=== PATIENT | male | born 1980 | race Caucasian/White ===

== ENCOUNTER 2019-04-18 07:09 | Emergency (ER) | payer OTHER ==
[~2019-04-18] VITALS: Ht 182.9 cm; Wt 111.1 kg
[2019-04-18 07:21] VITALS: BP 136/91
[2019-04-18 07:44] LABS: ABSOLUTE NEUTROPHILS 3.8 thou/uL (1.4-8.2); BASOPHILS 0.8 % (0.0-2.0); EOSINOPHILS 2.5 % (0.0-3.0); HEMATOCRIT 49.5 % (42.0-52.0); HEMOGLOBIN 16.6 gm/dL (14.0-18.0); MCH 29.9 pg (26.0-34.0); MCHC 33.4 g/dL (28.0-37.0); MCV 89.5 fL (80.0-100.0); MONOCYTES 8.9 % (1.0-8.0); PLATELET COUNT 300 thou/uL (150-400); POLYS 60.8 % (36.0-66.0); RBC 5.53 mil/uL (4.50-6.00); RDW 14.4 % (10.5-14.5); WBC 6.3 thou/uL (4.0-11.0)
[2019-04-18 08:01] LABS: ANION GAP 9 mmol/L (7-16); BUN 9 mg/dL (7-18); CALCIUM 9.7 mg/dL (8.5-10.1); CHLORIDE 104 mmol/L (98-107); CO2 28 mmol/L (21-32); CREATININE 0.8 mg/dL (0.7-1.3); GLUCOSE 133 mg/dL (74-106); POTASSIUM 4.1 mmol/L (3.5-5.1); SODIUM 141 mmol/L (136-145)
[2019-04-18 08:09] LABS: MAGNESIUM 1.8 mg/dL (1.8-2.4); TROPONIN-I <0.06 ng/mL (<0.06)
--- NOTE | 2019-04-18 11:27 | EKG ---
[address] [address] ELECTROCARDIOGRAM REPORT Name: JACKIE NASCIMENTO Room #: DEP Juan M#: [id number] Admission: 04/18/19 Attend Phys: Discharge: 04/18/19 Date of : 76 Report #: [id number] THIS REPORT FOR: //name// [facility] ED Test Date: 2019-04-18 Test Time: 07:19:38 Pat Name: JACKIE NASCIMENTO Department: Room: Gender: Hse Coordinator: ELVIRABRIGETTESNOW : 1980 Requested By: Lj Beverly Order Number: [id number] MD: Anup Colunga Measurements Intervals [place] Rate: 92 P: 66 OK: 136 QRS: 35 QRSD: 79 T: 37 QT: 309 QTc: 383 Interpretive Statements Sinus rhythm No previous ECG available for comparison Electronically Signed On 04-18-2019 11:26:58 [employer] by Anup Colunga [email or web address] <ELECTRONICALLY SIGNED> By: Anup Colunga MD 04/18/19 [id number] 8 Anup Colunga MD /EPI
== END 2019-04-18 08:31 | disposition home or self-care (01) ==
LOC: ER 07:09
PROVIDERS: Emergency Medicine
DX: R00.2 Palpitations (principal); I48.91 Unspecified atrial fibrillation; Z87.891 Personal history of nicotine dependence